=== PATIENT | male | born 1945 | race Caucasian/White ===

== ENCOUNTER 2017-10-02 15:28 | Outpatient (CLI) | payer MEDICARE ==
--- NOTE | 2017-10-02 17:12 | MRI ---
MRI CERVICAL SPINE NONCONTRAST: 10/02/17 HISTORY: Neck pain with left arm radiculopathy. FINDINGS: There is desiccation of all the intervertebral discs and prominent discogenic end plate changes. Disc space narrowing at each level. C2-3: Posterior osteophyte/disc complex with mild stenosis of the central canal. Right neural foramen is patent. Moderate to severe left foraminal stenosis. C3-4: Posterior osteophyte/disc complex. Circumferential degenerative changes with moderate stenosis of the central canal. Severe bilateral foraminal stenoses. C4-5: Posterior osteophyte/disc complex. Circumferential degenerative changes with severe stenosis of the central canal. No abnormal signal within the spinal cord. Severe bilateral foraminal stenoses. C5-6: Posterior osteophyte/disc complex. Circumferential degenerative changes with severe stenosis of the central canal. No abnormal signal within the spinal cord. Severe bilateral foraminal stenoses. C6-7: Posterior osteophyte/disc complex. Circumferential degenerative changes with severe stenosis of the central canal. No abnormal signal within the spinal cord. Moderate right and severe left foramin al stenosis. C7-T1: Mild posterior osteophyte/disc complex. Mild to moderate central canal stenosis. Mild right fo raminal stenosis. IMPRESSION: Severe multilevel degenerative changes throughout the cervical spine, including central canal and for aminal stenoses as detailed above. No evidence of myelomalacia. POS: LINK
== END 2017-10-02 15:29 | disposition home or self-care (01) ==
LOC: TBSIIMAG 15:28
PROVIDERS: ATTEND Family Medicine
DX: M47.22 Other spondylosis with radiculopathy, cervical region (principal); M48.03 Spinal stenosis, cervicothoracic region; M99.81 Other biomechanical lesions of cervical region; M99.82 Other biomechanical lesions of thoracic region
CPT/HCPCS: 72141

== ENCOUNTER 2017-12-03 09:47 | Outpatient (CLI) | payer MEDICARE | END 2017-12-03 09:48 | disposition home or self-care (01) | LOC: BICRAD 09:47 | PROVIDERS: ATTEND Anesthesiology Pain Medicine | DX: M13.851 Other specified arthritis, right hip (principal) ==

== ENCOUNTER 2018-07-17 07:42 | Outpatient (CLI) | payer MEDICARE ==
--- NOTE | 2018-07-17 09:08 | MRI ---
EXAM: Left shoulder MRI without contrast: HISTORY: Acute left shoulder pain lost range of motion COMPARISON: None FINDINGS: Multiplanar, multisequence MRI examination of the shoulder is performed. A C joint:Arthrosis with minimal fluid and fat stranding in the subacromial and subdeltoid bursa. Supraspinatus tendon: Partial-thickness undersurface insertional tear. Infraspinatus tendon: Intact. Biceps tendon: Split type tear of the biceps tendon as it exits the bicipital groove with medial subl uxation Subscapularis tendon: Undersurface and delaminating tear of the subscapularis tendon Rotator cuff muscles: Very mild muscle volume loss of the infraspinatus and teres minor muscles. Glenoid labrum: Abnormal superior labrum consistent with labral tear. Prominent subchondral cystic changes involving the anterior greater tuberosity IMPRESSION: Split type tear of the biceps tendon with associated undersurface and delaminating tear of the subsca pularis tendon. Midgrade partial-thickness undersurface tear of the supraspinatus tendon at the insertion. Evidence for SLAP tear. Prominent intraosseous cystic change of the anterior humeral head and greater tuberosity. Mild loss of volume loss of the infraspinatus and teres minor muscles.
== END 2018-07-17 07:43 | disposition home or self-care (01) ==
LOC: BICMRI 07:42
PROVIDERS: ATTEND Orthopaedic Surgery
DX: M25.512 Pain in left shoulder (principal); S46.912A Strain of unspecified muscle, fascia and tendon at shoulder and upper arm level, left arm, initial encounter; S43.432A Superior glenoid labrum lesion of left shoulder, initial encounter

== ENCOUNTER 2018-10-21 11:52 | Outpatient (CLI) | payer MEDICARE ==
--- NOTE | 2018-10-21 14:04 | MRI ---
MRI OF THE RIGHT KNEE WITHOUT CONTRAST: 10/21/18 HISTORY: M79.609, right leg pain. Exam is limited due to extensive artifact from the proximal tibial screw as well as distal femoral strong rdware. FINDINGS: There is a horizontal tear of the posterior horn medial meniscus at the root attachment involving the superior articular surface. No full thickness tear. Mild intrameniscal degeneration of the posterior horn and medial meniscal body. LATERAL MENISCUS: Mild intrameniscal degeneration of the body and posterior horn with free edge fraying. Anterior cruciate ligament is intact. High grade intraligamentous degeneration of the posterior cruci ate ligament. The medial collateral ligament and lateral collateral ligaments are intact. The lateral tibial screw is through the expected location of the IT band. EXTENSOR MECHANISM: Quadriceps tendon, patella and patellar tendon are intact. CARTILAGE: Patellofemoral compartment: Multifocal full thickness cartilage fissures medial patellar facet with subcortical reaction marrow c hanges. Multifocal grade III chondromalacia of the central trochlea. Medial compartment: There is 25 to 30% chondral fraying throughout the weightbearing surface medial compartment. Lateral compartment: There is some high chondral delamination, 50-75% thickness, central weightbearing surface of the late ral femoral condyle. There are also a few full thickness cartilage fissures of the lateral tibial anu teau and subcortical reactive marrow changes. BONES: There is subcortical cyst formation felt to be coming from the PCL footprint along the tibial spines. Also subcortical cyst underneath the weightbearing surface lateral tibial plateau. SOFT TISSUES: Small joint effusion. Mild synovitis. There is an accessory third head of the gastrocnemius muscle ju st medial to the lateral head. IMPRESSION: 1. Superior horizontal flap tear of the posterior horn medial meniscus at the root attachment in volving approximately 15% of the volume. 2. Free edge fraying involving mild volume loss of the posterior horn and body lateral meniscus without gutter extrusion. 3. 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 4. Subcortical cysts throughout the tibial spine posteriorly near the PCL insertion likely from intraligamentous degeneration. 5. Subcortical cyst formation deep to the medial meniscus likely sequela of chondromalacia. 6. Multifocal high grade cartilage delamination along the lateral femoral condyle central weight bearing surface along with full thickness cartilage fissures with subcortical cysts of the lateral ti bial plateau likely an area of healed old fracture. 7. Multifocal grade I chondromalacia patellofemoral compartment. 8. Accessory third head of the gastrocnemius muscle. POS: HOME
== END 2018-10-21 11:53 | disposition home or self-care (01) ==
LOC: BICMRI 11:52
PROVIDERS: ATTEND Orthopaedic Surgery
DX: M79.604 Pain in right leg (principal); S83.241A Other tear of medial meniscus, current injury, right knee, initial encounter; M17.11 Unilateral primary osteoarthritis, right knee; M94.261 Chondromalacia, right knee

== ENCOUNTER 2019-01-07 09:29 | Outpatient (CLI) | payer MEDICARE ==
[2019-01-07 14:04] LABS: #Basophils 0.1 thou/uL (0.0-0.2); #Eosinphils 0.2 thou/uL (0.0-0.7); #Lymphocytes 3.5 thou/uL (1.20-3.40); %Basophils 0.7 % (0.0-1.0); %Eosinophils 1.7 % (0.0-10.0); %Lymphocytes 32.6 % (21.0-51.0); Hemoglobin 14.9 g/dL (14.0-18.0); Mean Corpuscular HGB CONC 34.1 g/dL (32.0-36.0); Mean Corpuscular Hemoglobin 30.5 pg (27.0-31.0); Mean Corpuscular Volume 89.6 fL (78.0-98.0); Mean Platelet Volume 6.6 fL (7.4-10.4); Platelet Count 297 thou/uL (130-400); Red Blood Cell (RBC) Count 4.89 mill/uL (4.70-6.10); White Blood Cell (WBC) Count 10.6 thou/uL (4.8-10.8)
[2019-01-07 14:08] LABS: INR-International Normal Ratio 1.1; Prothrombin Time 13.8 SEC (12.0-14.7)
[2019-01-07 14:23] LABS: Anion Gap 11 mmol/L (10-20); BUN (Urea Nitrogen) 14 mg/dL (8.4-25.7); Bacteria/HPF None Seen HPF (None Seen); Bilirubin Negative (Negative); Blood, Urine Negative (Negative); Calc. Creatinine Clearance 0 mL/min (70-130); Calcium 9.4 mg/dL (7.8-10.44); Carbon Dioxide 27 mmol/L (23-31); Chloride 100 mmol/L (98-107); Clarity Clear (Clear); Estimated GFR-MDRD 73; Glucose 94 mg/dL (83-110); Glucose, Urine (Dipstick) Normal (Negative); Leukocyte Negative Leu/uL (Negative); Nitrite Negative (Negative); Potassium 4.2 mmol/L (3.5-5.1); Protein, Urine (Dipstick) Negative (Neg-Trace); RBC/HPF 0-3 HPF (0-3); Sodium 134 mmol/L (136-145); Squamous Epithelial None Seen HPF (0-3); Urobilinogen Normal mg/dL (Less than 2); WBC/HPF 0-3 HPF (0-3)
--- NOTE | 2019-01-07 20:44 | EKG ---
Test Reason : Blood Pressure : / mmHG Vent. Rate : 070 BPM Atrial Rate : 070 BPM P-R Int : 140 ms QRS Dur : 070 ms QT Int : 398 ms P-R-T Axes : 035 044 026 degrees QTc Int : 429 ms Normal sinus rhythm Normal ECG When compared with ECG of 20-SEP-2014 13:17, Premature ventricular complexes are no longer Present Confirmed by CAYLA KING, SNash ([id number]) on 01/07/2019 8:43:51 PM Referred By: DESTIN Confirmed By:DR. Ramses KULKARNI MD
== END 2019-01-07 09:30 | disposition home or self-care (01) ==
LOC: LABBT 09:29
PROVIDERS: ATTEND Orthopaedic Surgery
DX: Z01.818 Encounter for other preprocedural examination (principal); M17.31 Unilateral post-traumatic osteoarthritis, right knee
CPT/HCPCS: 80048; 81001; 85025; 85610; 87081; 93005; 93010

== ENCOUNTER 2019-06-11 13:24 | Outpatient (CLI) | payer MEDICARE ==
--- NOTE | 2019-06-11 15:35 | MRI ---
EXAM: RIGHT KNEE MRI WITHOUT IV CONTRAST: 06/11/19 HISTORY: Other chronic pain, pain right knee. Follow-up plain film x-ray 01/19/19 which demonstrated recent total knee arthroplasty change. There is very severe metal susceptibility artifact from the total knee arthroplasty change which very severely limits the sensitivity of this study. There are some arthrosis changes of the proximal tibi ofibular joint. The visualized quadriceps tendon appears intact. Patellar tendon is poorly seen but a ppears intact. No abnormal fluid collection. No evidence for soft tissue mass. IMPRESSION: Very severely limited examination because of severe metal susceptibility artifact. Postop total knee arthroplasty changes. No evidence for other significant acute process. If recent plain film examination has not been performed, that should certainly be considered. Possib ly a CT scan might give some additional information as well although there would certainly be artifac t from the dense metal on the CT scan. If there is any concern for loosening or infection, follow-up nuclear medicine bone scan/white blood cell label scan might be of benefit as well. POS: HAN
== END 2019-06-11 13:25 | disposition home or self-care (01) ==
LOC: TBSIIMAG 13:24
PROVIDERS: ATTEND Family Medicine
DX: M25.561 Pain in right knee (principal); G89.29 Other chronic pain; Z96.652 Presence of left artificial knee joint